=== PATIENT | male | born 1945 | race Caucasian/White ===

== ENCOUNTER 2017-02-28 12:00 | Observation (INO) ==
[2017-02-28 12:33] LABS: Basophils # 0.1 K/mcL (0.0-0.2); Basophils % 0.7 %; Eosinophils # 0.3 K/mcL (0.0-0.6); Hematocrit 40.9 % (37.5-50.1); Hemoglobin 13.3 g/dL (12.9-16.9); Immature Granulocytes % 0.7 % (0-4); Lymphocytes # 2.9 K/mcL (0.6-4.6); Lymphocytes % 33.1 %; Mean Corpuscular HGB Conc 32.5 g/dL (31.6-35.5); Mean Corpuscular Hemoglobin 25.6 pg (28.0-33.3); Mean Corpuscular Volume 78.7 fL (83.0-100.0); Mean Platelet Volume 10.9 fL (9.4-12.4); Monocytes # 0.8 K/mcL (0.0-1.3); Monocytes % 8.8 %; Neutrophils # 4.7 K/mcL (1.6-8.9); Platelet Count 180 K/mcL (140-400); Segmented Neutrophils % 53.7 %
--- NOTE | 2017-02-28 12:40 | Emergency Department Note ---
Disposition Clinical Impression: Abdominal pain, Overdose Disposition: Admitted As Inpatient Condition: Fair Time of Disposition: 14:26 Abdominal Pain HPI - General Chief Complaint: ED Abdominal Pain Stated Complaint: Abdominal Pain Time Seen by Provider: 02/28/17 12:15 Source: patient, EMS Mode of arrival: EMS Limitations: no limitations Nursing Notes Reviewed: Yes Vital Signs Reviewed: Yes - History of Present Illness HPI Narrative: he reportedly took 24 tramadol and less than 24 hours for abdominal pain patient states he is just not getting any relief he denies nausea vomiting fever chills he denies though any smell of blood he is visually impaired since he cannot see if his stools or black or tarry he denies chest pain chest pressure any radiation up into the neck or to the jaw he denies any weakness states Soma belly hurts and he needs something done about it Pt Subjective Complaint: abdominal pain Onset (ago): week(s) Consistency: constant Location: diffuse Pain Severity: moderate Pain Scale: 6 Quality: cramping Improves with: nothing Worsens with: nothing Associated symptoms: Reports: nausea. Denies: vomiting, diarrhea, fever, chills , constipation, dysuria, hematemesis, hematochezia, melena, hematuria, anorexia , syncope Treatments prior to arrival: none - Related Data Home Medications Medication Instructions Recorded Confirmed Atorvastatin [Lipitor] 80 mg PO QPM 04/15/15 01/28/17 Carvedilol [Coreg] 2 tab PO QID 04/15/15 01/28/17 Clopidogrel [Plavix] 75 mg PO DAILY 04/15/15 01/28/17 Esomeprazole Magnesium [Nexium] 40 mg PO QAM 04/15/15 01/28/17 Fluticasone/Salmeterol [Advair 1 inh IH BID 04/15/15 01/28/17 250-50 Diskus] Furosemide [Lasix] 20 mg PO DAILY 04/15/15 01/28/17 Gemfibrozil [Lopid] 600 mg PO BIDWM 04/15/15 01/28/17 LORazepam [Ativan] 0.5 mg PO HS 04/15/15 01/28/17 Losartan [Cozaar] 25 mg PO QPM 04/15/15 01/28/17 Montelukast [Singulair] 10 mg PO QPM 04/15/15 01/28/17 Nitroglycerin [Nitrostat] 0.4 mg SL Q5-6MIN PRN 04/15/15 01/28/17 OxyCODONE/APAP 5/325 [Percocet 1 each PO Q6HR PRN 04/15/15 01/28/17 5/325 MG] Ranolazine [Ranexa] 500 mg PO BID 04/15/15 01/28/17 Rivaroxaban [Xarelto] 15 mg PO QPM 04/15/15 01/28/17 Sertraline [Zoloft] 100 mg PO QPM 04/15/15 01/28/17 Sitagliptin Phosphate [Januvia] 50 mg PO QAM 04/15/15 01/28/17 Tamsulosin HCl [Flomax] 1 cap PO BID 04/15/15 01/28/17 Previous Rx's Medication Instructions Recorded GuaiFENesin/Dextromethorphan 10 ml PO Q6H #1 udc 06/17/15 [Robitussin/Dm] Nitroglycerin 0.4 mg SL Q5MIN PRN #1 vial 06/17/15 Isosorbide MONOnitrate (24 HR) 60 mg PO BID #0 05/29/16 [Imdur] HYDROcodone/Acet 5/325 mg [[place] 1 tab PO Q6H #10 tab 01/28/17 5-325 mg] Ondansetron ODT [Zofran ODT] 4 mg SL Q6HR #24 tab.rapdis 01/28/17 Allergies Allergy/AdvReac Type Severity Reaction Status Date / Time No Known Allergies Allergy Verified 04/14/15 18:52 All systems ED: reviewed and negative except as stated. Constitutional: Denies: fever, chills, weakness Eyes: Denies: eye pain, eye discharge ENT ED: Denies: ear pain Cardiovascular: Denies: chest pain Respiratory: Denies: cough, dyspnea, wheezes Gastrointestinal: Reports: abdominal pain. Denies: nausea, vomiting Genitourinary: Denies: urgency, dysuria, frequency Musculoskeletal: Denies: back pain, neck pain Integumentary: Denies: rash, abrasion Neurological: Denies: headache, weakness Psychiatric: Denies: anxiety, depression, suicidal thoughts, homicidal thoughts Endocrine: Denies: fatigue Hematological/Lymphatic: Denies: easy bleeding Allergic/Immunologic: Denies: facial swelling Abdominal Pain PMH - Past Medical History Medical history: Reports: asthma, CHF, COPD, coronary artery disease, diabetes, hypertension, myocardial infarction, pulmonary embolus, valvular heart disease, other Male Surgical History: Reports: herniorrhaphy, other Psychiatric history: Reports: no psych history, depression, panic disorder - Social History Smoking status: Never smoker Alcohol use: Reports: none Drug use: Reports: none Physical Exam - General Limitations: no limitations General appearance: alert, in no apparent distress, obese - Head Head exam: atraumatic, normocephalic, normal inspection - Eye Eye exam: Present: normal appearance, PERRL, EOMI, other (visually imaired) - ENT ENT exam: normal exam, normal oropharynx, mucous membranes moist, TM's normal bilaterally, normal external ear exam - Neck Neck exam: Present: normal inspection, full ROM, trachea midline - Chest Chest inspection: Present: normal inspection, symmetric chest wall rise - Respiratory Respiratory exam: Present: normal lung sounds bilaterally - Cardiovascular Cardiovascular exam: Present: regular rate, normal rhythm, normal heart sounds - Abdominal Exam Abdominal exam: Present: soft, Non-Tender, normal bowel sounds. Absent: mass, pulsatile mass - Extremities Exam Extremities exam: Present: normal inspection, full ROM, normal capillary refill. Absent: tenderness, joint swelling - Expanded Lower Extremity Exam Neurovascular/Tendon exam: Present: normal capillary refill, normal fine/light touch - Back Exam Back exam: Present: normal inspection, full ROM. Absent: muscle spasm - Neurological Exam Neurological exam: Present: alert, oriented X3, CN II-XII intact, normal gait - Psychiatric Psychiatric exam: Present: normal affect, normal mood - Skin Skin exam: Present: warm, dry, intact, normal color Course Course Narrative: Patient seen and examined observed admitted for observation transfer service of Dr. Woo stable - Reevaluation(s) Reevaluation #1: H admitted for observation service of Dr. Woo as result the overmedication on the tramadol to make sure no secondary, patient's to develop that he is having no respiratory distress or difficulty breathing Reevaluation #2: abdominal pain is most likely secondary to gallbladder etiology thus taking the reason for the excessive amount tramadol will need to have gallbladder removed at some point Vital Signs Temperature 98.8 F 02/28/17 12:03 Pulse Rate 73 02/28/17 12:03 Respiratory Rate 16 02/28/17 12:03 Blood Pressure 108/60 02/28/17 12:03 O2 Sat by Pulse Oximetry 99 02/28/17 12:03 Temperature 98.8 F 02/28/17 14:50 Pulse Rate 64 02/28/17 14:03 Respiratory Rate 18 02/28/17 14:50 Blood Pressure 111/62 02/28/17 14:50 O2 Sat by Pulse Oximetry 95 02/28/17 14:03 Oxygen Delivery Oxygen Delivery Room Air Abdominal Pain - Differential Diagnosis Differential Diagnosis: Likely: abdominal pain non-specific, acute appendicitis , other (overdose) - Medical Records Medical records reviewed: Yes I reviewed the patient's medical records. - Lab Data Lab results reviewed: Yes I reviewed the patient's lab results. Result diagrams: 02/28/17 12:12 02/28/17 12:12 Lab Results 02/28/17 02/28/17 02/28/17 Range/Units 12:12 12:12 12:12 WBC 8.7 (4.3-11.1) K/mcL RBC 5.20 (4.19-5.50) M/mcL Hgb 13.3 (12.9-16.9) g/dL Hct 40.9 (37.5-50.1) % MCV 78.7 L (83.0-100.0) fL MCH 25.6 L (28.0-33.3) pg MCHC 32.5 (31.6-35.5) g/dL RDW 16.0 H (11.5-14.5) % Plt Count 180 (140-400) K/mcL MPV 10.9 (9.4-12.4) fL Immature Gran % 0.7 (0-4) % Seg Neutrophils % 53.7 % Lymphocytes % 33.1 % Monocytes % 8.8 % Eosinophils % 3.0 % Basophils % 0.7 % Neutrophils # 4.7 (1.6-8.9) K/mcL Lymphocytes # 2.9 (0.6-4.6) K/mcL Monocytes # 0.8 (0.0-1.3) K/mcL Eosinophils # 0.3 (0.0-0.6) K/mcL Basophils # 0.1 (0.0-0.2) K/mcL APTT 35.5 (26.0-36.0) Seconds Sodium 138 (136-145) mEq/L Potassium 3.9 (3.5-4.5) mEq/L Chloride 108 (98-109) mEq/L Carbon Dioxide 19 (19-29) mEq/L BUN 32 H (8-26) mg/dL Creatinine 2.09 H (0.72-1.25) mg/dL Est GFR ( Amer) 38 L (> 60) Est GFR (Non-Af Amer) 31 L (> 60) BUN/Creatinine Ratio 15 (6-26) Glucose 96 (70-99) mg/dL Calculated Osmolality 293 (280-300) Calcium 8.6 (8.6-10.8) mg/dL Magnesium 1.9 (1.6-2.6) mg/dL Total Bilirubin 0.5 (0.2-1.2) mg/dL AST 23 (5-34) Units/L ALT 22 (0-55) Units/L Alkaline Phosphatase 47 (38-126) Units/L Troponin I (0-0.03) ng/mL B-Natriuretic Peptide (0-100) pg/mL Serum Total Protein 6.6 (6.0-8.3) g/dL Albumin 3.2 L (3.5-5.0) g/dL Globulin 3.4 (2.4-3.5) g/dL Albumin/Globulin Ratio 0.9 L (1.1-2.2) Lipase 39 (8-78) Units/L Urine Color (Yellow) Urine Clarity (Clear) Urine pH (5.0-8.0) pH Units Ur Specific [place] (1.010-1.025) Urine Protein (Neg-Trace) mg/dL Urine Glucose (UA) (Normal) mg/dL Urine Ketones (Negative) mg/dL Urine Blood (Negative) Urine Nitrite (Negative) Urine Bilirubin (Negative) Urine Urobilinogen (Normal) mg/dL Ur Leukocyte Esterase (Negative) Urine Microscopic RBC (0-3) per hpf Urine Microscopic WBC (0-3) per hpf Ur Squamous Epith Cells (None-Few) per lpf Urine Bacteria (None-Few) per hpf Ur Culture Indicated? (NO) Salicylates < 1.0 L (15-30) mg/dL Urine Opiates Screen (Jzwgas=233) ng/mL Ur Oxycodone Screen (Cutoff= 100) ng/mL Acetaminophen < 1.0 L (10-30) mcg/mL Ur Barbiturates Screen (Fpnbhx=962) ng/mL Ur Phencyclidine Scrn (Cutoff=25) ng/mL Ur Amphetamines Screen (Bbdwec=1021) ng/mL U Benzodiazepines Scrn (Oqokii=913) ng/mL Urine Cocaine Screen (Cutoff= 300) ng/mL U Marijuana (THC) Screen (Cutoff = 50) ng/mL Ethyl Alcohol (0-10) mg/dL 02/28/17 02/28/17 02/28/17 Range/Units 12:12 12:12 12:25 WBC (4.3-11.1) K/mcL RBC (4.19-5.50) M/mcL Hgb (12.9-16.9) g/dL Hct (37.5-50.1) % MCV (83.0-100.0) fL MCH (28.0-33.3) pg MCHC (31.6-35.5) g/dL RDW (11.5-14.5) % Plt Count (140-400) K/mcL MPV (9.4-12.4) fL Immature Gran % (0-4) % Seg Neutrophils % % Lymphocytes % % Monocytes % % Eosinophils % % Basophils % % Neutrophils # (1.6-8.9) K/mcL Lymphocytes # (0.6-4.6) K/mcL Monocytes # (0.0-1.3) K/mcL Eosinophils # (0.0-0.6) K/mcL Basophils # (0.0-0.2) K/mcL APTT (26.0-36.0) Seconds Sodium (136-145) mEq/L Potassium (3.5-4.5) mEq/L Chloride (98-109) mEq/L Carbon Dioxide (19-29) mEq/L BUN (8-26) mg/dL Creatinine (0.72-1.25) mg/dL Est GFR ( Amer) (> 60) Est GFR (Non-Af Amer) (> 60) BUN/Creatinine Ratio (6-26) Glucose (70-99) mg/dL Calculated Osmolality (280-300) Calcium (8.6-10.8) mg/dL Magnesium (1.6-2.6) mg/dL Total Bilirubin (0.2-1.2) mg/dL AST (5-34) Units/L ALT (0-55) Units/L Alkaline Phosphatase (38-126) Units/L Troponin I 0.01 (0-0.03) ng/mL B-Natriuretic Peptide 23 (0-100) pg/mL Serum Total Protein (6.0-8.3) g/dL Albumin (3.5-5.0) g/dL Globulin (2.4-3.5) g/dL Albumin/Globulin Ratio (1.1-2.2) Lipase (8-78) Units/L Urine Color (Yellow) Urine Clarity (Clear) Urine pH (5.0-8.0) pH Units Ur Specific [place] (1.010-1.025) Urine Protein (Neg-Trace) mg/dL Urine Glucose (UA) (Normal) mg/dL Urine Ketones (Negative) mg/dL Urine Blood (Negative) Urine Nitrite (Negative) Urine Bilirubin (Negative) Urine Urobilinogen (Normal) mg/dL Ur Leukocyte Esterase (Negative) Urine Microscopic RBC (0-3) per hpf Urine Microscopic WBC (0-3) per hpf Ur Squamous Epith Cells (None-Few) per lpf Urine Bacteria (None-Few) per hpf Ur Culture Indicated? (NO) Salicylates (15-30) mg/dL Urine Opiates Screen (Zptelb=152) ng/mL Ur Oxycodone Screen (Cutoff= 100) ng/mL Acetaminophen (10-30) mcg/mL Ur Barbiturates Screen (Yotvko=660) ng/mL Ur Phencyclidine Scrn (Cutoff=25) ng/mL Ur Amphetamines Screen (Izxwka=6765) ng/mL U Benzodiazepines Scrn (Eqgpwd=895) ng/mL Urine Cocaine Screen (Cutoff= 300) ng/mL U Marijuana (THC) Screen (Cutoff = 50) ng/mL Ethyl Alcohol < 10 (0-10) mg/dL 02/28/17 02/28/17 Range/Units 13:43 13:43 WBC (4.3-11.1) K/mcL RBC (4.19-5.50) M/mcL Hgb (12.9-16.9) g/dL Hct (37.5-50.1) % MCV (83.0-100.0) fL MCH (28.0-33.3) pg MCHC (31.6-35.5) g/dL RDW (11.5-14.5) % Plt Count (140-400) K/mcL MPV (9.4-12.4) fL Immature Gran % (0-4) % Seg Neutrophils % % Lymphocytes % % Monocytes % % Eosinophils % % Basophils % % Neutrophils # (1.6-8.9) K/mcL Lymphocytes # (0.6-4.6) K/mcL Monocytes # (0.0-1.3) K/mcL Eosinophils # (0.0-0.6) K/mcL Basophils # (0.0-0.2) K/mcL APTT (26.0-36.0) Seconds Sodium (136-145) mEq/L Potassium (3.5-4.5) mEq/L Chloride (98-109) mEq/L Carbon Dioxide (19-29) mEq/L BUN (8-26) mg/dL Creatinine (0.72-1.25) mg/dL Est GFR ( Amer) (> 60) Est GFR (Non-Af Amer) (> 60) BUN/Creatinine Ratio (6-26) Glucose (70-99) mg/dL Calculated Osmolality (280-300) Calcium (8.6-10.8) mg/dL Magnesium (1.6-2.6) mg/dL Total Bilirubin (0.2-1.2) mg/dL AST (5-34) Units/L ALT (0-55) Units/L Alkaline Phosphatase (38-126) Units/L Troponin I (0-0.03) ng/mL B-Natriuretic Peptide (0-100) pg/mL Serum Total Protein (6.0-8.3) g/dL Albumin (3.5-5.0) g/dL Globulin (2.4-3.5) g/dL Albumin/Globulin Ratio (1.1-2.2) Lipase (8-78) Units/L Urine Color Yellow (Yellow) Urine Clarity Clear (Clear) Urine pH 5.5 (5.0-8.0) pH Units Ur Specific [place] 1.015 (1.010-1.025) Urine Protein Negative (Neg-Trace) mg/dL Urine Glucose (UA) Normal (Normal) mg/dL Urine Ketones Negative (Negative) mg/dL Urine Blood Trace-intact H (Negative) Urine Nitrite Negative (Negative) Urine Bilirubin Negative (Negative) Urine Urobilinogen Normal (Normal) mg/dL Ur Leukocyte Esterase Negative (Negative) Urine Microscopic RBC 0-3 (0-3) per hpf Urine Microscopic WBC 0-3 (0-3) per hpf Ur Squamous Epith Cells Few (None-Few) per lpf Urine Bacteria Few (None-Few) per hpf Ur Culture Indicated? NO (NO) Salicylates (15-30) mg/dL Urine Opiates Screen Negative (Sydbav=217) ng/mL Ur Oxycodone Screen Negative (Cutoff= 100) ng/mL Acetaminophen (10-30) mcg/mL Ur Barbiturates Screen Negative (Dbzsgq=533) ng/mL Ur Phencyclidine Scrn Negative (Cutoff=25) ng/mL Ur Amphetamines Screen Negative (Nqofby=5585) ng/mL U Benzodiazepines Scrn Negative (Zazokv=513) ng/mL Urine Cocaine Screen Negative (Cutoff= 300) ng/mL U Marijuana (THC) Screen Negative (Cutoff = 50) ng/mL Ethyl Alcohol (0-10) mg/dL - Radiology Data Radiology results reviewed: Yes I reviewed the patient's radiology results. ITS Impressions Chest X-Ray 02/28/17 12:18 IMPRESSION: 1. Low lung volumes but no active pulmonary disease. 2. Stable cardiomegaly without overt failure. D/ / Derrick Pandey MD / Derrick Pandey MD Interpreting Provider: Derrick Pandey MD - EKG Data EKG attestation: Yes I reviewed and interpreted this EKG. EKG results narrative: Sinus rhythm first degree AV block no ST segment elevation rate 68 UT-2 14 QRS 141 QT 452 access 15 Critical Care Time Critical Care Time: No
[2017-02-28 12:53] LABS: Acetaminophen < 1.0 mcg/mL (10-30); Alanine Aminotransferase 22 Units/L (0-55); Albumin 3.2 g/dL (3.5-5.0); Albumin/Globulin Ratio 0.9 (1.1-2.2); Alkaline Phosphatase 47 Units/L (38-126); Aspartate Amino Transferase 23 Units/L (5-34); BUN/Creatinine Ratio 15 (6-26); Bilirubin,Total 0.5 mg/dL (0.2-1.2); Blood Urea Nitrogen 32 mg/dL (8-26); Calcium 8.6 mg/dL (8.6-10.8); Carbon Dioxide 19 mEq/L (19-29); Chloride 108 mEq/L (98-109); Globulin 3.4 g/dL (2.4-3.5); Glucose 96 mg/dL (70-99); Lipase 39 Units/L (8-78); Magnesium 1.9 mg/dL (1.6-2.6); Osmolality,Calculated 293 (280-300); Potassium 3.9 mEq/L (3.5-4.5); Salicylate < 1.0 mg/dL (15-30); Sodium 138 mEq/L (136-145); Total Protein 6.6 g/dL (6.0-8.3); eGFR For African Americans 38 (> 60); eGFR For Non-African Americans 31 (> 60)
[2017-02-28 13:46] LABS: Bilirubin,Urine Negative (Negative); Blood,Urine Trace-intact (Negative); Clarity,Urine Clear (Clear); Color,Urine Yellow (Yellow); Glucose,Urine (UA) Normal (Normal); Ketones,Urine Negative (Negative); Leukocyte Esterase,Urine Negative (Negative); Nitrite,Urine Negative (Negative); PH,Urine 5.5 pH Units (5.0-8.0); Protein,Urine Negative (Neg-Trace); Specific Gravity,Urine 1.015 (1.010-1.025); Urobilinogen,Urine Normal (Normal)
[2017-02-28 14:03] LABS: RBC,Urine 0-3 per hpf (0-3); WBC,Urine 0-3 per hpf (0-3)
[2017-02-28 14:04] LABS: Squamous Epithelial Cell,Urine Few per lpf (None-Few)
[2017-02-28 14:07] LABS: Bacteria,Urine Few per hpf (None-Few)
[2017-02-28 14:18] LABS: Amphetamine Screen,Urine Negative ng/mL (Cutoff=1000); Barbiturate Screen,Urine Negative ng/mL (Cutoff=200); Benzodiazepines Screen,Urine Negative ng/mL (Cutoff=200); Cannabinoid Screen,Urine Negative ng/mL (Cutoff = 50); Cocaine Screen,Urine Negative ng/mL (Cutoff= 300); Opiate Screen,Urine Negative ng/mL (Cutoff=300); Phencyclidine Screen,Urine Negative ng/mL (Cutoff=25)
[2017-02-28] MEDS ORDERED: Naloxone 0.4 MG/ML INJ IVP PRN (14:52)
[2017-02-28] MEDS ORDERED: Ibuprofen 400 MG TABLET PO PRN (14:52)
[2017-02-28] MEDS ORDERED: Acetaminophen 325 MG TABLET PO PRN (14:52)
[2017-02-28] MEDS: 0.9 % Sodium Chloride 1,000 ML IVC SCH (16:52)
[2017-02-28] MEDS: Ondansetron ODT 4 MG TAB.RAPDIS SL SCH (17:00)
[2017-02-28] MEDS ORDERED: *HR* Rivaroxaban 15 MG TABLET PO SCH (18:00)
[2017-02-28] MEDS ORDERED: *HR* LORazepam 0.5 MG TABLET PO SCH (21:00)
[2017-02-28] MEDS: Ranolazine 500 MG TAB.ER.12H PO SCH (21:25)
[2017-02-28] MEDS: Isosorbide MONOnitrate (24 HR) 60 MG TAB.ER.24H PO SCH (21:25)
[2017-02-28] MEDS ORDERED: Mag Hydrox/Al Hydrox/Simeth 30 ML UDC PO PRN (21:52)
[2017-02-28] MEDS: Budesonide/Formoterol 80/4.5 MDI IH SCH (22:19)
[2017-03-01] MEDS: Ondansetron ODT 4 MG TAB.RAPDIS SL SCH ×3 (04:11→12:00)
[2017-03-01] MEDS: 0.9 % Sodium Chloride 1,000 ML IVC SCH (05:38)
[2017-03-01 06:06] LABS: Basophils # 0.1 K/mcL (0.0-0.2); Basophils % 0.8 %; Eosinophils # 0.3 K/mcL (0.0-0.6); Eosinophils % 4.3 %; Hematocrit 38.8 % (37.5-50.1); Hemoglobin 12.3 g/dL (12.9-16.9); Immature Granulocytes % 0.5 % (0-4); Lymphocytes # 2.2 K/mcL (0.6-4.6); Lymphocytes % 34.1 %; Mean Corpuscular HGB Conc 31.7 g/dL (31.6-35.5); Mean Corpuscular Hemoglobin 25.4 pg (28.0-33.3); Mean Corpuscular Volume 80.2 fL (83.0-100.0); Mean Platelet Volume 11.4 fL (9.4-12.4); Monocytes # 0.7 K/mcL (0.0-1.3); Monocytes % 9.9 %; Neutrophils # 3.3 K/mcL (1.6-8.9); Platelet Count 174 K/mcL (140-400); Red Blood Count 4.84 M/mcL (4.19-5.50); Segmented Neutrophils % 50.4 %
[2017-03-01 06:26] LABS: INR 1.5; Prothrombin Time 16.1 Seconds (9.4-12.1)
[2017-03-01 06:28] LABS: Activated Partial Thrombo Time 34.2 Seconds (26.0-36.0)
[2017-03-01 06:29] LABS: Albumin 2.9 g/dL (3.5-5.0); Bilirubin,Total 0.7 mg/dL (0.2-1.2); Calcium 8.3 mg/dL (8.6-10.8); Globulin 2.8 g/dL (2.4-3.5); Potassium 4.3 mEq/L (3.5-4.5); Total Protein 5.7 g/dL (6.0-8.3)
[2017-03-01] MEDS: Isosorbide MONOnitrate (24 HR) 60 MG TAB.ER.24H PO SCH (08:47)
[2017-03-01] MEDS: Ranolazine 500 MG TAB.ER.12H PO SCH (08:47)
[2017-03-01] MEDS ORDERED: Spironolactone 25 MG TABLET PO SCH (09:00)
[2017-03-01] MEDS ORDERED: Famotidine 20 MG TABLET PO SCH (09:00)
[2017-03-01] MEDS ORDERED: Furosemide 20 MG TABLET PO SCH (09:00)
[2017-03-01] MEDS ORDERED: *HR* SitaGLIPtin 25 MG TABLET PO SCH (09:00)
[2017-03-01] MEDS: Budesonide/Formoterol 80/4.5 MDI IH SCH (10:25)
[2017-03-01 11:50] VITALS: BP 127/74
--- NOTE | 2017-03-01 12:45 | Electrocardiograph Report ---
[address] [place] [address] Test Date: 2017-02-28 Pat Name: Andres Ferreira Department: [id number] Room: 

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
--- NOTE | 2017-03-01 16:03 | Discharge Summary ---
Date of Encounter: 03/01/17 Time of Encounter: 15:15 - Discharge Diagnosis (1) Abdominal pain Priority: Primary Status: Acute Qualifiers: Abdominal location: unspecified location Qualified Code(s): R10.9 - Unspecified abdominal pain - Discharge Medications Home Medications: Atorvastatin [Lipitor] 80 mg PO QPM 04/15/15 [History] Carvedilol [Coreg] 6.25 tab PO DAILY 04/15/15 [History] Clopidogrel [Plavix] 75 mg PO DAILY 04/15/15 [History] Esomeprazole Magnesium [Nexium] 40 mg PO QAM 04/15/15 [History] Fluticasone/Salmeterol [Advair 250-50 Diskus] 1 inh IH BID 04/15/15 [History] Furosemide [Lasix] 20 mg PO DAILY 04/15/15 [History] Gemfibrozil [Lopid] 600 mg PO BIDWM 04/15/15 [History] LORazepam [Ativan] 0.5 mg PO HS 04/15/15 [History] Losartan [Cozaar] 25 mg PO QPM 04/15/15 [History] Montelukast [Singulair] 10 mg PO QPM 04/15/15 [History] Nitroglycerin [Nitrostat] 0.4 mg SL Q5-6MIN PRN 04/15/15 [History] OxyCODONE/APAP 5/325 [Percocet 5/325 MG] 1 each PO Q6HR PRN 04/15/15 [History] Ranolazine [Ranexa] 500 mg PO BID 04/15/15 [History] Rivaroxaban [Xarelto] 15 mg PO QPM 04/15/15 [History] Sertraline [Zoloft] 50 mg PO QPM 04/15/15 [History] Sitagliptin Phosphate [Januvia] 50 mg PO QAM 04/15/15 [History] Tamsulosin HCl [Flomax] 1 cap PO DAILY 04/15/15 [History] GuaiFENesin/Dextromethorphan [Robitussin/Dm] 10 ml PO Q6H #1 udc 06/17/15 [Rx] Nitroglycerin 0.4 mg SL Q5MIN PRN #1 vial 06/17/15 [Rx] Isosorbide MONOnitrate (24 HR) [Imdur] 60 mg PO BID #0 05/29/16 [Rx] HYDROcodone/Acet 5/325 mg [[place] 5-325 mg] 1 tab PO Q6H #10 tab 01/28/17 [Rx] Ondansetron ODT [Zofran ODT] 4 mg SL Q6HR #24 tab.rapdis 01/28/17 [Rx] Buspirone HCl [Buspar] 7.5 mg PO DAILY 02/28/17 [History] Famotidine [Heartburn Prevention] 20 mg PO DAILY 02/28/17 [History] Spironolactone [Aldactone] 25 mg PO DAILY 02/28/17 [History] Allergies/Adverse Reactions: Allergies No Known Allergies Allergy (Verified 04/14/15 18:52) Date of admission: 02/28/17 14:43 Primary care physician: Jacobo Novoa M.D. - Patient Status Disposition: Home, Self-Care Condition: Fair Overall status at discharge: patient is progressing back to baseline - Discharge Instructions Follow Up With: Jacobo Novoa MD [Partnered Physician] - 1 week - Diet and Activity Activity: resume usual activities as tolerated Diet: advance to your usual diet Hospital course: Mr. Ferreira is a 71 year old male who came to the hospital at the suggestion of his hospice nurse when he reported he had discomfort in his right flank which radiated to his left anterior-lateral abdominal area. He reports the onset was February 27 but it worsened over the next few hours. He describes it as a sharp sensation. There was no nausea vomiting or diarrhea associated. He has had similar type pains on occasion but not this severe. He reported in emergency room he had taken 24 Ultram pills without significant relief in the pain. CT scan of the abdomen/pelvis in the emergency room showed no acute process. He was admitted to [facility] for ongoing care needs. Initial orders were written by the emergency room physician. I saw him on March 01 and performed a history and physical and discharge. Etiology of the pain was not determined with certainty. He did have tenderness in his left lateral lower rib area to compression which he stated was similar to the pain he had at home. I did not think the pain was of myocardial or gallbladder origin. He felt stable for discharge home when I saw him on March 01. He will follow with his PCP within one week. - Time Spent with Patient Total time spent providing and/or coordinating discharge services: - Constitutional Vitals: Temp Pulse Resp BP Pulse Ox 98.2 F 63 18 127/74 96 03/01/17 11:49 03/01/17 11:49 03/01/17 11:49 03/01/17 11:49 03/01/17 11:49
== END 2017-03-01 17:26 | disposition home or self-care (01) ==
LOC: EMEROOPIK 12:00 → INPPIK 12:00
PROVIDERS: ADMIT Internal Medicine; ATTEND Internal Medicine

== ENCOUNTER 2017-06-11 10:35 | Observation (INO) ==
--- NOTE | 2017-06-11 10:42 | Emergency Department Note ---
Disposition Clinical Impression: Chest pain, CAD (coronary artery disease), CKD (chronic kidney disease), stage III, COPD (chronic obstructive pulmonary disease) Disposition: Admitted As Inpatient Condition: Fair Forms: ED Satisfaction Letter Time of Disposition: 12:23 ([facility]) Chest Pain HPI - General Chief Complaint: ED Chest Pain Stated Complaint: Chest Pain Time Seen by Provider: 06/11/17 10:35 Source: patient Mode of arrival: ambulatory Limitations: no limitations Vital Signs Reviewed: Yes Nursing Notes Reviewed: Yes - History of Present Illness Pt complaint: chest pain Onset (ago): Just [employer] Duration: constant, now resolved Onset: during rest Pain Location: left chest Severity: moderate Severity scale (1-10): 5 Quality: tightness Pain Radiation: neck, jaw/teeth Improves with: nothing Worsens with: nothing Context: other (hx of cardiac) Associated symptoms: Reports: nausea. Denies: vomiting, diaphoresis, dyspnea, sense of impending doom, syncope, palpitations, fever, cough, leg swelling Treatments prior to arrival chest pain: aspirin, nitroglycerin - Related Data Home Medications Medication Instructions Recorded Confirmed Carvedilol [Coreg] 6.25 tab PO DAILY 04/15/15 06/11/17 Furosemide [Lasix] 20 mg PO DAILY 04/15/15 06/11/17 Losartan [Cozaar] 25 mg PO QPM 04/15/15 06/11/17 Sertraline [Zoloft] 50 mg PO QPM 04/15/15 06/11/17 Sitagliptin Phosphate [Januvia] 50 mg PO QAM 04/15/15 06/11/17 Tamsulosin HCl [Flomax] 0.4 mg PO DAILY 04/15/15 06/11/17 Buspirone HCl [Buspar] 7.5 mg PO DAILY 02/28/17 06/11/17 Spironolactone [Aldactone] 25 mg PO DAILY 02/28/17 06/11/17 Tramadol HCl [Ultram] 50 mg PO Q4H PRN 03/07/17 06/11/17 Atorvastatin Calcium [Lipitor] 80 mg PO DAILY 03/08/17 06/11/17 Esomeprazole Magnesium [Nexium] 40 mg PO DAILY 03/08/17 06/11/17 Gemfibrozil [Lopid] 600 mg PO DAILY 03/08/17 06/11/17 Acetaminophen [Tylenol 650mg SUPP] 650 mg RC Q4H PRN 05/12/17 06/11/17 Acetaminophen [Tylenol] 650 mg PO Q4H PRN 05/12/17 06/11/17 Bisacodyl [Dulcolax] 10 mg RC DAILY PRN 05/12/17 06/11/17 Haloperidol Oral Conc [Haldol] 0.5 mg PO Q2H PRN 05/12/17 06/11/17 Hyoscyamine SL [Levsin Sl] 0.125 mg SL Q2H PRN 05/12/17 06/11/17 LORazepam [Ativan] 0.5 mg PO Q4H PRN 05/12/17 06/11/17 Nitroglycerin [Nitrostat] 0.4 mg SL Q5M PRN 05/12/17 06/11/17 Oxygen 2 l NS AD 05/12/17 06/11/17 Promethazine [Phenergan] 25 mg RC Q6H PRN 05/12/17 06/11/17 Ranolazine [Ranexa] 500 mg PO DAILY 05/12/17 06/11/17 Previous Rx's Medication Instructions Recorded Isosorbide MONOnitrate (24 HR) 60 mg PO DAILY #30 tab.er.24h 03/08/17 [Imdur] Rivaroxaban [Xarelto] 15 mg PO QPM #30 tablet 03/08/17 Docusate Sodium [Colace] 100 mg PO BID #30 capsule 05/14/17 Polyethylene Glycol 3350 [MiraLAX 1 scoop PO DAILY PRN #510 gm 05/14/17 Powder Bulk 17.9 Oz] Allergies Allergy/AdvReac Type Severity Reaction Status Date / Time No Known Allergies Allergy Verified 05/12/17 10:43 All systems ED: reviewed and negative except as stated. Review of Systems: As Per HPI Constitutional: Denies: fever, chills, weakness Eyes: Denies: eye pain, eye discharge ENT ED: Denies: ear pain Cardiovascular: Reports: chest pain. Denies: palpitations, dyspnea on exertion , syncope, paroxysmal nocturnal dyspnea Respiratory: Denies: cough, dyspnea, wheezes Gastrointestinal: Denies: abdominal pain, nausea, vomiting Genitourinary: Denies: urgency, dysuria, frequency Musculoskeletal: Denies: back pain Integumentary: Denies: rash, abrasion Neurological: Denies: headache Psychiatric: Denies: anxiety, depression Endocrine: Denies: fatigue Hematological/Lymphatic: Denies: easy bleeding, easy bruising Allergic/Immunologic: Denies: facial swelling Chest Pain PMH - Past Medical History Medical history: Reports: asthma, cardiomyopathy, CHF, COPD, coronary artery disease, diabetes, hypertension, myocardial infarction, pulmonary embolus, renal disease, valvular heart disease, other Surgical history: Reports: angioplasty/stent, cataract, herniorrhaphy, prostatectomy Psychiatric history: Reports: no psych history, depression, panic disorder - Social History Smoking Status: Never smoker Alcohol use: Reports: none Drug use: Reports: none Physical Exam - General Limitations: no limitations, physical limitation (blind) General appearance: alert, in no apparent distress, anxious - Head Head exam: atraumatic, normocephalic, normal inspection - Eye Eye exam: Present: normal appearance, PERRL, EOMI - ENT ENT exam: normal exam, normal oropharynx, mucous membranes moist, normal external ear exam - Neck Neck exam: Present: normal inspection, full ROM, trachea midline - Chest Chest inspection: Present: normal inspection, symmetric chest wall rise - Respiratory Respiratory exam: Present: normal lung sounds bilaterally - Cardiovascular Cardiovascular exam: Present: regular rate, normal rhythm - Abdominal Exam Abdominal exam: Present: soft, Non-Tender, normal bowel sounds. Absent: mass, pulsatile mass - Extremities Exam Extremities exam: Present: normal inspection, full ROM, normal capillary refill. Absent: tenderness, pedal edema, joint swelling, calf tenderness - Expanded Lower Extremity Exam Neurovascular/Tendon exam: Present: normal capillary refill, normal fine/light touch Gait: observed and normal - Back Exam Back exam: Present: normal inspection, full ROM. Absent: muscle spasm - Neurological Exam Neurological exam: Present: alert, oriented X3, CN II-XII intact, normal gait - Psychiatric Psychiatric exam: Present: normal affect, normal mood - Skin Skin exam: Present: warm, dry, intact, normal color Course Course Narrative: Patient seen and examined laboratory data started patient received aspirin and nitroglycerin is currently pain-free resting in the emergency room - Reevaluation(s) Reevaluation #1: Glands are reported as negative but we will admitting because of a strong family history and personal strong cardiac history to make sure that he does not have an underlying cardiac event at this time Vital Signs Temperature 98.4 F 06/11/17 10:40 Pulse Rate 79 06/11/17 10:40 Respiratory Rate 14 06/11/17 10:40 Blood Pressure 128/76 06/11/17 10:40 O2 Sat by Pulse Oximetry 95 06/11/17 10:40 Temperature 98.4 F 06/11/17 10:40 Pulse Rate 77 06/11/17 12:14 Respiratory Rate 16 06/11/17 12:14 Blood Pressure 136/64 06/11/17 12:14 O2 Sat by Pulse Oximetry 98 06/11/17 12:14 Oxygen Delivery Oxygen Delivery Nasal Cannula Chest Pain - Medical Records Medical records reviewed: Yes I reviewed the patient's medical records. - Lab Data Lab results reviewed: Yes I reviewed the patient's lab results. Result diagrams: 06/11/17 10:50 06/11/17 10:50 Lab Results 06/11/17 06/11/17 06/11/17 Range/Units 10:50 10:50 10:50 WBC 8.3 (4.3-11.1) K/mcL RBC 5.57 H (4.19-5.50) M/mcL Hgb 14.0 (12.9-16.9) g/dL Hct 44.0 (37.5-50.1) % MCV 79.0 L (83.0-100.0) fL MCH 25.1 L (28.0-33.3) pg MCHC 31.8 (31.6-35.5) g/dL RDW 15.2 H (11.5-14.5) % Plt Count 205 (140-400) K/mcL MPV 11.3 (9.4-12.4) fL Immature Gran % 0.6 (0-4) % Seg Neutrophils % 51.2 % Lymphocytes % 34.7 % Monocytes % 9.6 % Eosinophils % 3.4 % Basophils % 0.5 % Neutrophils # 4.3 (1.6-8.9) K/mcL Lymphocytes # 2.9 (0.6-4.6) K/mcL Monocytes # 0.8 (0.0-1.3) K/mcL Eosinophils # 0.3 (0.0-0.6) K/mcL Basophils # 0.0 (0.0-0.2) K/mcL PT 25.7 H (9.4-12.1) Seconds INR 2.3 APTT 42.9 H (26.0-36.0) Seconds Sodium 142 (136-145) mEq/L Potassium 4.7 H (3.5-4.5) mEq/L Chloride 106 (98-109) mEq/L Carbon Dioxide 23 (19-29) mEq/L BUN 21 (8-26) mg/dL Creatinine 2.00 H (0.72-1.25) mg/dL Est GFR ( Amer) 40 L (> 60) Est GFR (Non-Af Amer) 33 L (> 60) BUN/Creatinine Ratio 11 (6-26) Glucose 105 H (70-99) mg/dL Calculated Osmolality 297 (280-300) Calcium 9.5 (8.6-10.8) mg/dL Troponin I (0-0.03) ng/mL B-Natriuretic Peptide (0-100) pg/mL 06/11/17 06/11/17 Range/Units 10:50 10:50 WBC (4.3-11.1) K/mcL RBC (4.19-5.50) M/mcL Hgb (12.9-16.9) g/dL Hct (37.5-50.1) % MCV (83.0-100.0) fL MCH (28.0-33.3) pg MCHC (31.6-35.5) g/dL RDW (11.5-14.5) % Plt Count (140-400) K/mcL MPV (9.4-12.4) fL Immature Gran % (0-4) % Seg Neutrophils % % Lymphocytes % % Monocytes % % Eosinophils % % Basophils % % Neutrophils # (1.6-8.9) K/mcL Lymphocytes # (0.6-4.6) K/mcL Monocytes # (0.0-1.3) K/mcL Eosinophils # (0.0-0.6) K/mcL Basophils # (0.0-0.2) K/mcL PT (9.4-12.1) Seconds INR APTT (26.0-36.0) Seconds Sodium (136-145) mEq/L Potassium (3.5-4.5) mEq/L Chloride (98-109) mEq/L Carbon Dioxide (19-29) mEq/L BUN (8-26) mg/dL Creatinine (0.72-1.25) mg/dL Est GFR ( Amer) (> 60) Est GFR (Non-Af Amer) (> 60) BUN/Creatinine Ratio (6-26) Glucose (70-99) mg/dL Calculated Osmolality (280-300) Calcium (8.6-10.8) mg/dL Troponin I 0.01 (0-0.03) ng/mL B-Natriuretic Peptide 54 (0-100) pg/mL - Radiology Data Radiology results reviewed: Yes I reviewed the patient's radiology results. - EKG Data EKG attestation: Yes I reviewed and interpreted this EKG. EKG results narrative: EKG shows ice rhythm first degree AV block right bundle branch block nonspecific T-wave changes rate 76 PA-2 21 QRS 139 QT 428 axis XLVIII 2 additional EKGs from EMS are provided Heart Score - Score History: Moderately Suspicious EKG: Non Specific repolarisation Disturbance Age: Greater than 65 Risk Factors: Equal/Greater than 3 risk factor or history of atherosclerotic disease Troponin: Less than normal limit HEART Score Total: 6 Critical Care Time Critical Care Time: No
[2017-06-11 11:03] LABS: Basophils % 0.5 %; Eosinophils # 0.3 K/mcL (0.0-0.6); Eosinophils % 3.4 %; Immature Granulocytes % 0.6 % (0-4); Lymphocytes # 2.9 K/mcL (0.6-4.6); Lymphocytes % 34.7 %; Mean Corpuscular HGB Conc 31.8 g/dL (31.6-35.5); Mean Corpuscular Hemoglobin 25.1 pg (28.0-33.3); Mean Platelet Volume 11.3 fL (9.4-12.4); Monocytes # 0.8 K/mcL (0.0-1.3); Monocytes % 9.6 %; Neutrophils # 4.3 K/mcL (1.6-8.9); Platelet Count 205 K/mcL (140-400); Red Blood Count 5.57 M/mcL (4.19-5.50); Red Cell Distribution Width 15.2 % (11.5-14.5); Segmented Neutrophils % 51.2 %
[2017-06-11 11:07] LABS: INR 2.3; Prothrombin Time 25.7 Seconds (9.4-12.1)
[2017-06-11 11:09] LABS: Activated Partial Thrombo Time 42.9 Seconds (26.0-36.0)
[2017-06-11 11:16] LABS: Calcium 9.5 mg/dL (8.6-10.8); Potassium 4.7 mEq/L (3.5-4.5)
[2017-06-11] MEDS ORDERED: Ondansetron ODT 4 MG TAB.RAPDIS SL PRN (13:34)
[2017-06-11] MEDS ORDERED: D5% in Water 1,000 ML IVC PRN (13:34)
[2017-06-11] MEDS ORDERED: Acetaminophen 325 MG TABLET PO PRN (13:34)
[2017-06-11] MEDS ORDERED: *HR* Dextrose 50 % in Water (Syg) 50 ML SYRINGE IVP PRN (13:34)
[2017-06-11] MEDS ORDERED: Dextrose Gel 15 GM PO PRN ×2 (13:34)
[2017-06-11] MEDS ORDERED: NON-FORMULARY MEDICATION 1 EACH EACH (Oxygen [Oxygen] 2 L) NS SCH (13:34)
[2017-06-11] MEDS ORDERED: Haloperidol Oral Conc 10 MG/5 ML UDC PO PRN (13:34)
[2017-06-11] MEDS ORDERED: Hyoscyamine SL 0.125 MG TAB.SUBL SL PRN (13:34)
[2017-06-11] MEDS ORDERED: Naloxone 0.4 MG/ML INJ IVP PRN (13:34)
[2017-06-11] MEDS ORDERED: traMADol 50 MG TABLET PO PRN (13:34)
[2017-06-11] MEDS ORDERED: Nitroglycerin 0.4 MG TAB.SUBL SL PRN (13:34)
[2017-06-11] MEDS ORDERED: Bisacodyl 10 MG RECTAL SUPPOSITORY RC PRN (13:34)
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
[2017-06-11] MEDS: *HR* LORazepam 0.5 MG TABLET PO PRN (15:56)
[2017-06-11] MEDS: Insulin LISPRO 300 UNITS/3 ML VIAL SQ SCH (16:33)
[2017-06-11] MEDS: Aspirin 81 MG TAB.CHEW PO SCH (16:34)
[2017-06-11] MEDS ORDERED: *HR* Rivaroxaban 15 MG TABLET PO SCH (18:00)
--- NOTE | 2017-06-11 19:15 | Electrocardiograph Report ---
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
[2017-06-11] MEDS ORDERED: Insulin LISPRO 300 UNITS/3 ML VIAL SQ SCH (21:00)
[2017-06-12] MEDS: Nitroglycerin 0.4 MG TAB.SUBL SL PRN ×2 (04:41→04:47)
[2017-06-12 06:14] LABS: Basophils % 0.5 %; Eosinophils # 0.2 K/mcL (0.0-0.6); Eosinophils % 2.6 %; Hematocrit 43.5 % (37.5-50.1); Hemoglobin 13.8 g/dL (12.9-16.9); Immature Granulocytes % 0.6 % (0-4); Mean Corpuscular HGB Conc 31.7 g/dL (31.6-35.5); Mean Corpuscular Hemoglobin 24.7 pg (28.0-33.3); Mean Platelet Volume 11.6 fL (9.4-12.4); Monocytes # 0.7 K/mcL (0.0-1.3); Monocytes % 8.6 %; Neutrophils # 4.3 K/mcL (1.6-8.9); Platelet Count 206 K/mcL (140-400); Red Blood Count 5.58 M/mcL (4.19-5.50); Red Cell Distribution Width 15.1 % (11.5-14.5); Segmented Neutrophils % 51.7 %
[2017-06-12 06:26] LABS: Potassium 4.2 mEq/L (3.5-4.5)
[2017-06-12] MEDS: *HR* LORazepam 0.5 MG TABLET PO PRN (06:52)
[2017-06-12] MEDS: Insulin LISPRO 300 UNITS/3 ML VIAL SQ SCH (07:19)
[2017-06-12] MEDS ORDERED: Ranolazine 500 MG TAB.ER.12H PO SCH (09:00)
[2017-06-12] MEDS ORDERED: Furosemide 20 MG TABLET PO SCH (09:00)
[2017-06-12] MEDS ORDERED: *HR* SitaGLIPtin 25 MG TABLET PO SCH (09:00)
[2017-06-12] MEDS ORDERED: Spironolactone 25 MG TABLET PO SCH (09:00)
[2017-06-12] MEDS ORDERED: Isosorbide MONOnitrate (24 HR) 60 MG TAB.ER.24H PO SCH ×2 (09:00)
[2017-06-12] MEDS ORDERED: Pantoprazole 40 MG VIAL IVP SCH (09:00)
--- NOTE | 2017-06-12 09:36 | Discharge Summary ---
Date of Encounter: 06/12/17 Time of Encounter: 09:30 - Discharge Diagnosis (1) Chest pain Priority: Primary Status: Acute Qualifiers: Chest pain type: unspecified Qualified Code(s): R07.9 - Chest pain, unspecified - Discharge Medications Prescriptions: Carvedilol 12.5 mg PO BID #60 tab Isosorbide MONOnitrate (24 HR) [Imdur] 120 mg PO DAILY #60 tab.er.24h Rivaroxaban [Xarelto] 15 mg PO QPM #30 tablet Home Medications: Furosemide [Lasix] 20 mg PO DAILY 04/15/15 [History] Losartan [Cozaar] 25 mg PO QPM 04/15/15 [History] Sertraline [Zoloft] 50 mg PO QPM 04/15/15 [History] Sitagliptin Phosphate [Januvia] 50 mg PO QAM 04/15/15 [History] Tamsulosin HCl [Flomax] 0.4 mg PO DAILY 04/15/15 [History] Buspirone HCl [Buspar] 7.5 mg PO DAILY 02/28/17 [History] Spironolactone [Aldactone] 25 mg PO DAILY 02/28/17 [History] Tramadol HCl [Ultram] 50 mg PO Q4H PRN 03/07/17 [History] Atorvastatin Calcium [Lipitor] 80 mg PO DAILY 03/08/17 [History] Esomeprazole Magnesium [Nexium] 40 mg PO DAILY 03/08/17 [History] Gemfibrozil [Lopid] 600 mg PO DAILY 03/08/17 [History] Acetaminophen [Tylenol 650mg SUPP] 650 mg RC Q4H PRN 05/12/17 [History] Acetaminophen [Tylenol] 650 mg PO Q4H PRN 05/12/17 [History] Bisacodyl [Dulcolax] 10 mg RC DAILY PRN 05/12/17 [History] Haloperidol Oral Conc [Haldol] 0.5 mg PO Q2H PRN 05/12/17 [History] Hyoscyamine SL [Levsin Sl] 0.125 mg SL Q2H PRN 05/12/17 [History] LORazepam [Ativan] 0.5 mg PO Q4H PRN 05/12/17 [History] Nitroglycerin [Nitrostat] 0.4 mg SL Q5M PRN 05/12/17 [History] Oxygen 2 l NS AD 05/12/17 [History] Promethazine [Phenergan] 25 mg RC Q6H PRN 05/12/17 [History] Ranolazine [Ranexa] 500 mg PO DAILY 05/12/17 [History] Docusate Sodium [Colace] 100 mg PO BID #30 capsule 05/14/17 [Rx] Polyethylene Glycol 3350 [MiraLAX Powder Bulk 17.9 Oz] 1 scoop PO DAILY PRN # 510 gm 05/14/17 [Rx] Aspirin 81 mg PO DAILY tab.chew 06/12/17 [Rx] Carvedilol 12.5 mg PO BID #60 tab 06/12/17 [Rx] Isosorbide MONOnitrate (24 HR) [Imdur] 120 mg PO DAILY #60 tab.er.24h 06/12/17 [ Rx] Rivaroxaban [Xarelto] 15 mg PO QPM #30 tablet 06/12/17 [Rx] Allergies/Adverse Reactions: 3 Allergy/AdvReac Type Severity Reaction Status Date / Time No Known Allergies Allergy Verified 05/12/17 10:43 Date of admission: 06/11/17 13:01 Primary care physician: PCP NONE - Patient Status Disposition: Home Health Service Condition: Fair Functional capacity at discharge: uses cane/walker Overall status at discharge: patient is progressing back to baseline - Discharge Instructions Follow Up With: NONE,PCP [Primary Care Provider] - 1 week - Diet and Activity Activity: resume usual activities as tolerated, wear oxygen at all times Diet: advance to your usual diet Hospital course: Mr. Ferreira is a 71 year old male who came to the hospital stating he had onset of discomfort in his chest approximately 7:00 AM while at leisure. Describes it as a pain in his left chest that radiated to his left shoulder and elbow. He took a sublingual nitroglycerin pill with no relief. He called the squad and was given 2 additional nitroglycerin pills by squad personnel. He states the pain improved. He was evaluated in emergency room and admitted to [facility] for ongoing care needs. Initial orders were written by the emergency room physician. I saw him on June 11 and performed the history and physical. Repeat cardiac enzymes showed no evidence of myocardial damage. I reviewed his admission EKG and compared it to the February 2017 EKG. No significant changes were seen. I increased his isosorbide to 120 mg daily, increased his Coreg to 6.25 mg twice a day, and started him on aspirin. Xarelto was continued. He had occasional complaint of chest pain during his hospital stay. I will increase his Coreg further to 12.5 mg twice a day at discharge. He should follow with his PCP within one week who can adjust medications further as needed. - Time Spent with Patient Total time spent providing and/or coordinating discharge services: - Constitutional Vitals: Temp Pulse Resp BP Pulse Ox 98.0 F 67 18 147/78 97 06/12/17 07:02 06/12/17 07:02 06/12/17 07:02 06/12/17 07:02 06/12/17 07:02
--- NOTE | 2017-06-12 09:45 | Physician Discharge Referral ---
Home Health/Hosp Referral Info Transfer to: Home Health Attending Provider: Chilo Provider in Charge Post Discharge: PCP - Diagnosis (1) Chest pain Priority: Primary Status: Acute - Respiratory Orders Oxygen / L per min (Oxygen at 2 L/m by nasal cannula 07/04 to keep sat greater than 90%.) Smoking Cessation: Smoking cessation has been advised. For more information, call the [place] Tobacco Quit Line at 6-486-OPOO-NOW. - Diet/Nutrition Diet/Nutrition Orders: Regular - Activity Activity Orders: Ambulate - Services Needed Following services are medically necessary services: Nursing, Home Health Aide, Physical Therapy, Occupational Therapy - Transfer Medications Prescriptions: Carvedilol 12.5 mg PO BID #60 tab Isosorbide MONOnitrate (24 HR) [Imdur] 120 mg PO DAILY #60 tab.er.24h Rivaroxaban [Xarelto] 15 mg PO QPM #30 tablet Home Medications: Furosemide [Lasix] 20 mg PO DAILY 04/15/15 [History] Losartan [Cozaar] 25 mg PO QPM 04/15/15 [History] Sertraline [Zoloft] 50 mg PO QPM 04/15/15 [History] Sitagliptin Phosphate [Januvia] 50 mg PO QAM 04/15/15 [History] Tamsulosin HCl [Flomax] 0.4 mg PO DAILY 04/15/15 [History] Buspirone HCl [Buspar] 7.5 mg PO DAILY 02/28/17 [History] Spironolactone [Aldactone] 25 mg PO DAILY 02/28/17 [History] Tramadol HCl [Ultram] 50 mg PO Q4H PRN 03/07/17 [History] Atorvastatin Calcium [Lipitor] 80 mg PO DAILY 03/08/17 [History] Esomeprazole Magnesium [Nexium] 40 mg PO DAILY 03/08/17 [History] Gemfibrozil [Lopid] 600 mg PO DAILY 03/08/17 [History] Acetaminophen [Tylenol 650mg SUPP] 650 mg RC Q4H PRN 05/12/17 [History] Acetaminophen [Tylenol] 650 mg PO Q4H PRN 05/12/17 [History] Bisacodyl [Dulcolax] 10 mg RC DAILY PRN 05/12/17 [History] Haloperidol Oral Conc [Haldol] 0.5 mg PO Q2H PRN 05/12/17 [History] Hyoscyamine SL [Levsin Sl] 0.125 mg SL Q2H PRN 05/12/17 [History] LORazepam [Ativan] 0.5 mg PO Q4H PRN 05/12/17 [History] Nitroglycerin [Nitrostat] 0.4 mg SL Q5M PRN 05/12/17 [History] Oxygen 2 l NS AD 05/12/17 [History] Promethazine [Phenergan] 25 mg RC Q6H PRN 05/12/17 [History] Ranolazine [Ranexa] 500 mg PO DAILY 05/12/17 [History] Docusate Sodium [Colace] 100 mg PO BID #30 capsule 05/14/17 [Rx] Polyethylene Glycol 3350 [MiraLAX Powder Bulk 17.9 Oz] 1 scoop PO DAILY PRN # 510 gm 05/14/17 [Rx] Aspirin 81 mg PO DAILY tab.chew 06/12/17 [Rx] Carvedilol 12.5 mg PO BID #60 tab 06/12/17 [Rx] Isosorbide MONOnitrate (24 HR) [Imdur] 120 mg PO DAILY #60 tab.er.24h 06/12/17 [ Rx] Rivaroxaban [Xarelto] 15 mg PO QPM #30 tablet 06/12/17 [Rx] Allergies/Adverse Reactions: 3 Allergy/AdvReac Type Severity Reaction Status Date / Time No Known Allergies Allergy Verified 05/12/17 10:43 Certification: Further, I certify that my clinical findings support that this patient is homebound (i.e. absences from home require considerable and taxing effort and are for medical reasons or oriental orthodox services or infrequently or short duration when for other reasons) because: Homebound Reason: Leaving home requires considerable and taxing effort due to condition (Blindness) Attestation: My signature below is to certify that this patient is under my care and that I, or nurse practitioner, or a physician's nursing assistants teacher working with me, has a face-to -face encounter with this patient.
[2017-06-12 10:00] VITALS: BP 123/81
[2017-06-12] MEDS: Aspirin 81 MG TAB.CHEW PO SCH (10:01)
== END 2017-06-12 13:00 | disposition home health service (06) ==
LOC: EMEROOPIK 10:35 → INPPIK 10:35
PROVIDERS: ADMIT Internal Medicine; ATTEND Internal Medicine